=== PATIENT | female | born 1970 | race American Indian/Alaskan Native ===

== ENCOUNTER 2019-12-14 10:37 | Outpatient (CLI) | payer BC ==
--- NOTE | 2019-12-14 12:51 | Ultrasound Report ---
ULTRASOUND SOFT TISSUE HEAD AND NECK HISTORY: Thyroid cancer TECHNIQUE: Grayscale ultrasound with color Doppler imaging COMPARISON: 08/29/2018. FINDINGS: Thyroidectomy changes are evident. No significant residual thyroid tissue is appreciated. An irregular cystic area in the left side of the thyroid bed has resolved. This probably represents r esolution of a hematoma/seroma. No suspicious mass is appreciated in the thyroid bed. There are a few scattered cervical lymph nodes bilaterally. The largest lymph node is on the left julio e in zone 2A measures 1.7 x 0.7 x 1.0 cm. All lymph nodes have a normal-appearing cortex and fatty hi lum. IMPRESSION: Thyroidectomy changes. No suspicious mass has developed in the thyroid bed. Bilateral cervical lymph nodes are identified, mostly benign. There is however one lymph node which a ppears mildly enlarged measuring 1.7 x 0.7 x 1.0 cm but demonstrates normal architecture. Consider fu rther evaluation with CT neck with contrast or PET imaging. Signer Name: Michael Cole Jr, MD Signed: 12/14/2019 12:47 PM Workstation Name: [id number]
== END 2019-12-14 10:38 | disposition home or self-care (01) ==
LOC: SPVWC 10:37
PROVIDERS: ATTEND Internal Medicine Endocrinology, Diabetes & Metabolism
DX: C73 Malignant neoplasm of thyroid gland (principal); R59.0 Localized enlarged lymph nodes
CPT/HCPCS: 76536